=== PATIENT | female | born 1940 | race Two or more races ===

== ENCOUNTER 2020-06-16 17:58 | Emergency (ER) | payer OTHER ==
[~2020-06-16] VITALS: Ht 162.6 cm; Wt 71.7 kg
[~2020-06-16 17:58] MED LIST: AMLODIPINE BESYL5 MG PO; COZAAR25 MG PO; LIPITOR20 MG PO; SYNTHROID88 MCG PO
[2020-06-16] MEDS ORDERED: CIPRO500 MG PO (19:01)
== END 2020-06-16 19:15 | disposition home or self-care (01) ==
LOC: ER 17:58
DX: S61.021A Laceration with foreign body of right thumb without damage to nail, initial encounter (principal); W45.8XXA Other foreign body or object entering through skin, initial encounter; Y93.89 Activity, other specified; Y92.89 Other specified places as the place of occurrence of the external cause; Y99.8 Other external cause status

== ENCOUNTER 2021-07-20 08:10 | Outpatient (CLI) | payer OTHER ==
[~2021-07-20 08:10] MED LIST changes: +CIPRO500 MG PO
== END 2021-07-20 08:23 | disposition home or self-care (01) ==
LOC: NUCLEAR 08:10
PROVIDERS: ATTEND Specialist
DX: I50.1 Left ventricular failure, unspecified (principal); I25.9 Chronic ischemic heart disease, unspecified; E78.5 Hyperlipidemia, unspecified; I45.19 Other right bundle-branch block; E03.8 Other specified hypothyroidism; E11.9 Type 2 diabetes mellitus without complications
CPT/HCPCS: 78452; 93017; A9500; J0153

== ENCOUNTER → 2024-07-08 | Emergency (ER) | payer OTHER ==
[~2024-07-08] VITALS: Ht 157.5 cm; Wt 72.6 kg
[~2024-07-08] MED LIST changes: +ACYCLOVIR5 GM TOP; +AVAPRO75 MG PO; +GLUMETZA500 MG PO; +NEURONTIN300 MG PO; +ZOVIRAX800 MG PO
== END | disposition home or self-care (01) ==
LOC: ER 11:41
DX: B02.9 Zoster without complications (principal); R21 Rash and other nonspecific skin eruption; I10 Essential (primary) hypertension; E11.9 Type 2 diabetes mellitus without complications; Z79.84 Long term (current) use of oral hypoglycemic drugs